=== PATIENT | male | born 1995 | race Asian ===

== ENCOUNTER 2022-01-25 21:09 | Emergency (ER) | payer OTHER, SELFPAY ==
[2022-01-25 22:48] VITALS: BP 117/50; PULSE 72; RESP 18; TEMP 36.6; O2SAT 100
[2022-01-26] MEDS: HYDROCODONE/ACET 5/325 PREPACK 1 BOTTLE MISC (01:38)
[2022-01-26] MEDS: predniSONE 20 MG TABLET 60 MG PO (01:39)
[2022-01-26] MEDS: KETOROLAC 30 MG/ML VIAL IM (01:39)
--- NOTE | 2022-01-26 01:39 | ED.BACK ---
HPI - Back Pain/Injury General Chief Complaint: Back Pain/Injury Stated Complaint: LOWER BACK INJURY Time Seen by Provider: 01/26/22 01:31 Source: patient History of Present Illness HPI Narrative: 26-year-old male nonsmoker with noncontributory medical history presents with a chief complaint of left lower back pain with some pain that radiates down into his left leg. He states that he was bending over and lifting a heavy object when he felt a sudden onset of this pain. He states the pain is worse when he moves and improves with rest. He denies any loss of control of bowel or bladder. He denies any lower extremity weakness. He does have some tingling which also radiates down his left leg. He denies any specific trauma, does not use IV drugs and has no history of blood thinner use. Related Data Previous Rx's Medication Instructions Recorded gabapentin 300 mg capsule 300 mg PO BEDTIME #14 caps 01/26/22 hydrocodone 5 mg-acetaminophen 325 1 tab PO Q4-6H PRN pain #10 tabs 01/26/22 mg tablet ketorolac 10 mg tablet 10 mg PO Q6H PRN pain #14 tabs 01/26/22 methylprednisolone 4 mg tablets in See Rx Instructions PO .COMPLEX 01/26/22 a dose pack (Medrol (Sebastian)) #21 ea Review of Systems Review of Systems Narrative: GENERAL: Denies chills, fatigue, malaise, fever, sweats. HEENT: Denies sinus pain, ear pain, sore throat, difficulty swallowing, dizziness. RESPIRATORY: Denies dyspnea, cough, wheezing, hemoptysis, sputum. CARDIOVASCULAR: Denies chest pain, palpitations, orthopnea, edema, GASTROINTESTINAL: Denies nausea, vomiting, abdominal pain, diarrhea, constipation, melena. : Denies dysuria, frequency, incontinence, hematuria, urinary retention. MUSCULOSKELETAL: denies weakness, joint pain, or bony pain SKIN: Denies rash, skin lesions, or other NEUROLOGIC: Denies weakness, headache, numbness, change in speech, confusion, seizures, incoordination. PSYCHIATRIC: No concerning psychosocial issues. 12 point review of systems is negative except for those stated above Patient History Social History Smoking Status: Never smoker Smoking Status: Never smoker Substance Use Type: does not use Exam Narrative Exam Narrative: GENERAL: [26] year old patient appears stated age. Well-developed patient, in mild distress. HEAD: Atraumatic. Normocephalic. EYES: Pupils equal round and reactive. Extraocular motions intact. No scleral icterus. No injection or drainage. ENT: Nose without bleeding, purulent drainage. Throat without erythema, tonsillar hypertrophy or exudate. Airway patent. NECK: Trachea midline. Non tender CARDIOVASCULAR: Regular rate and rhythm without murmurs, gallops, or rubs. RESPIRATORY: Clear to auscultation. Breath sounds equal bilaterally. No wheezes, rales, or rhonchi. GASTROINTESTINAL: Abdomen soft, non-tender, nondistended. EXTREMITIES: No edema or joint tenderness. BACK: drum tender but free of any obvious external abnormalities. Patient exam notes decreased range of motion and muscle spasm, but no CVA tenderness, or vertebral point tenderness. There are no symptoms of cauda equina such as saddle anesthesia, and decreased reflexes, decreased sensation or strength. NEURO: AOx3. SKIN: No rash or erythema of visible areas Initial Vital Signs Initial Vital Signs: Vital Signs Temperature 98 F 01/25/22 22:48 Pulse Rate 72 01/25/22 22:48 Respiratory Rate 18 01/25/22 22:48 Blood Pressure 117/50 L 01/25/22 22:48 Pulse Oximetry 100 01/25/22 22:48 Oxygen Delivery Method 01/25/22 22:48 Course Orders Ordered: Discontinued Medications Hydrocodone Bitart/Acetaminophen (Hydrocodone/Acet 5/325 Prepack) 1 bottle MISC SEEINSTR ONE Stop: 01/26/22 01:32 Last Admin: 01/26/22 01:38 Dose: 1 bottle Documented By: MABLE Ketorolac Tromethamine (Ketorolac 30 Mg/Ml Vial) 30 mg IM NOW ONE Stop: 01/26/22 01:32 Last Admin: 01/26/22 01:39 Dose: 30 mg Documented By: MABLE Prednisone (Prednisone 20 Mg Tablet) 60 mg PO NOW ONE Stop: 01/26/22 01:32 Last Admin: 01/26/22 01:39 Dose: 60 mg Documented By: MABLE Vital Signs Vital signs: Vital Signs - 8 hr 01/25/22 22:48 Temperature 98 F Pulse Rate 72 Respiratory Rate 18 Blood Pressure 117/50 L Pulse Oximetry 100 Oxygen Delivery Method Room Air MDM - Back Pain/Injury MDM Narrative Medical decision making narrative: Multiple etiologies of back pain considered including; Epidural abscess, cauda equina, mass occupying lesion, and other considered, however no red flag findings concerning for neurosurgical emergency are present. Patient given extensive return precautions and questions have been answered to his apparent satisfaction. Discharge Plan Departure Patient Disposition: Home Clinical Impression: Acute left lumbar radiculopathy Instructions: DI for Lumbar Radiculopathy Activity Restrictions/Additional Instructions: *You have been diagnosed with [acute left lower lumbar pain with radiculopathy.] *What to do: *Please continue to take your regular medications as directed. [x ] New medication prescriptions sent to your pharmacy: [facility]] [ ] New medication written as a paper prescription [ ] No new medications given *Please follow up with your primary care provider in 2-3 days, call for an appointment. Let them know you were seen in the Emergency Department and that we ask that you be seen in follow up. We will electronically transmit a record of today's note if your PCP is in our system * as we discussed, I have given you contact information for our 2 orthopedists here at [facility] that specialize in back pain of this nature. It would be very reasonable to consider that you will eventually need physical therapy or perhaps an MRI *If you do not have a primary care provider please contact the [facility] Resource line at [phone]. They will ask some questions about your medical history and help get you set up with a doctor in the community. *Return to Emergency Department if you should have any new, worsening or concerning symptoms, such as [fever greater than 101 F, shaking chills, worsening pain, persistent vomiting or other bothersome symptoms] You have been prescribed a short course of narcotic medications. These are potentially dangerous and addictive medications that should be used carefully. While on these medications you cannot drive or operate heavy machinery. Additionally, you cannot sign legal documents or perform any duties such as this. Many people get constipated on narcotic medications so it would be advisable to discuss stool softeners with the pharmacist when you fern picker your prescription. Please understand that we cannot provide further refills of narcotics or controlled substances through the ED and your pain management will need to be through your Primary Care Provider Prescriptions: New hydrocodone-acetaminophen 5-325 mg tablet 1 tab PO Q4-6H PRN (Reason: pain) Qty: 10 0RF ketorolac 10 mg tablet 10 mg PO Q6H PRN (Reason: pain) Qty: 14 0RF gabapentin 300 mg capsule 300 mg PO BEDTIME Qty: 14 0RF methylprednisolone [Medrol (Sebastian)] 4 mg tablets,dose pack See Rx Instructions .ROUTE .COMPLEX Qty: 21 0RF Rx Instructions: orally per package directions Referrals: [facility] [Outside] Gustavo Pruitt DO [Physician] - Nola King MD [Physician] - Visit Report Forms: Patient Portal/API
== END 2022-01-26 01:45 | disposition home or self-care (01) ==
PROVIDERS: Emergency Provider Emergency Medicine
DX: M54.16 Radiculopathy, lumbar region (principal)
CPT/HCPCS: 96372; 99283; J1885